=== PATIENT | male | born 1970 ===

== ENCOUNTER 2022-08-13 15:20 | Emergency (ER) | payer OTHER ==
[~2022-08-13] VITALS: Ht 177.8 cm; Wt 81.8 kg
[2022-08-13] MEDS ORDERED: ACETAMINOPHEN 500 MG TABLET PO ONE (15:45)
[2022-08-13] MEDS ORDERED: PIOG15TA6 PO (15:49)
[2022-08-13] MEDS ORDERED: METF-1185 PO (15:49)
[2022-08-13 17:33] VITALS: BP 139/78
== END 2022-08-13 17:45 ==
LOC: EMS 15:23
DX: S90.112A Contusion of left great toe without damage to nail, initial encounter (principal); X58.XXXA Exposure to other specified factors, initial encounter; Y93.89 Activity, other specified; Y92.89 Other specified places as the place of occurrence of the external cause; Y99.8 Other external cause status
CPT/HCPCS: 99283